=== PATIENT | male | born 1950 | race Native Hawaiian/Other Pacific Islander ===

== ENCOUNTER 2016-07-05 12:04 | Emergency (ER) | payer OTHER ==
[~2016-07-05] VITALS: Ht 160 cm; Wt 88.5 kg
[~2016-07-05 12:04] MED LIST: AMIO200T14 PO; AMLO2.5T PO; ASPIRIN LOW STR81 MG PO; CARV6.25 PO; COZAAR25 MG PO; FURO20TA67 PO; GABA300C2 PO; METF500T PO; METO50TA27 PO; PANT40TA PO; POT CHLORIDE10 ME1 OR; POT CHLORIDE10 ME1 PO; PRAVACHOL80 MG PO; SPIRIVA IN; WARFARIN2.5 MG PO
[2016-07-05 12:10] VITALS: BP 150/95; TEMP 98.4
== END 2016-07-05 13:45 | disposition home or self-care (01) ==
LOC: ED 12:04
DX: R42 Dizziness and giddiness (principal)
CPT/HCPCS: 99283

== ENCOUNTER 2016-08-06 13:35 | Outpatient (CLI) | payer OTHER ==
[2016-08-06 13:59] LABS: POTASSIUM 4.6 mmol/L (3.6-5.2); SODIUM 136 mmol/L (136-145)
== END 2016-08-06 19:33 | disposition home or self-care (01) ==
LOC: LABW 13:35
PROVIDERS: Internal Medicine Cardiovascular Disease
DX: I34.0 Nonrheumatic mitral (valve) insufficiency (principal); R60.9 Edema, unspecified; I42.8 Other cardiomyopathies; Z79.01 Long term (current) use of anticoagulants; I25.10 Atherosclerotic heart disease of native coronary artery without angina pectoris; R06.9 Unspecified abnormalities of breathing
CPT/HCPCS: 36415; 80048; 83880

== ENCOUNTER 2016-12-07 12:56 | Emergency (ER) | payer OTHER ==
[~2016-12-07] VITALS: Ht 160 cm; Wt 86.2 kg
[2016-12-07 13:28] VITALS: BP 166/71; TEMP 97.7
== END 2016-12-07 14:44 | disposition home or self-care (01) ==
LOC: ED 12:56
DX: M54.41 Lumbago with sciatica, right side (principal)
CPT/HCPCS: 99282

== ENCOUNTER 2016-12-20 12:59 | Emergency (ER) | payer OTHER ==
[~2016-12-20] VITALS: Ht 190.5 cm; Wt 86.2 kg
[2016-12-20 13:41] LABS: PLATELET COUNT 265 K/uL (142-355)
[2016-12-20 14:47] VITALS: BP 152/63; TEMP 97.9
== END 2016-12-20 14:45 | disposition home or self-care (01) ==
LOC: ED 12:59
DX: R06.09 Other forms of dyspnea (principal); J44.1 Chronic obstructive pulmonary disease with (acute) exacerbation; J20.9 Acute bronchitis, unspecified; J44.0 Chronic obstructive pulmonary disease with (acute) lower respiratory infection
CPT/HCPCS: 85027; 94664; 99283

== ENCOUNTER 2017-01-04 13:44 | Inpatient (IN) | payer OTHER ==
[2017-01-04] VITALS (28 sets, daily range): BP systolic 108–164; BP diastolic 70–130; TEMP 97.9–98.1; Ht 160 cm; Wt 83.2 kg
[~2017-01-04] VITALS: Ht 160 cm; Wt 83.2 kg
[2017-01-04 14:46] LABS: PLATELET COUNT 282 K/uL (142-355)
[2017-01-04 14:57] LABS: POTASSIUM 4.1 mmol/L (3.6-5.2); SODIUM 139 mmol/L (136-145)
[2017-01-04 15:19] LABS: PARTIAL THROMBOPLASTIN TIME 25.6 SECONDS (24.5-33.6)
[2017-01-05] VITALS (19 sets, daily range): BP systolic 112–176; BP diastolic 60–112; TEMP 97.6–98.4
[2017-01-05 06:38] LABS: PLATELET COUNT 262 K/uL (142-355)
[2017-01-05 09:52] LABS: POTASSIUM 5.1 mmol/L (3.6-5.2); SODIUM 135 mmol/L (136-145)
[2017-01-06 08:22] VITALS: BP 131/65; TEMP 98
[2017-01-06 15:04] LABS: PLATELET COUNT 288 K/uL (142-355)
== END 2017-01-06 14:20 | disposition home or self-care (01) | DRG 310 ==
LOC: ED 13:44 → ICU 16:15 → MED/SURG 01-05 12:09
PROVIDERS: Family Medicine; ADMIT Emergency Medicine
DX: I48.91 Unspecified atrial fibrillation (principal); I48.92 Unspecified atrial flutter; I10 Essential (primary) hypertension; E11.9 Type 2 diabetes mellitus without complications; J44.9 Chronic obstructive pulmonary disease, unspecified; F43.10 Post-traumatic stress disorder, unspecified
CPT/HCPCS: 36415; 80053; 80061; 80307; 80320; 81000; 82550; 82553; 82948; 82962; 83735; 83880; 84484; 85027; 85610; 85730; 93005; 94640; 94664; 94760; 96361; 96365; 96372; 96375; 99285; G0479; J1815; J1956; J2930; J3475; J3490

== ENCOUNTER 2017-08-06 11:47 | Emergency (ER) | payer OTHER ==
[~2017-08-06] VITALS: Ht 160 cm; Wt 87.5 kg
[2017-08-06 13:10] LABS: PLATELET COUNT 311 K/uL (142-355)
[2017-08-06 13:12] LABS: POTASSIUM 4.9 mmol/L (3.6-5.2)
[2017-08-06 14:30] VITALS: BP 122/78; TEMP 97.9
== END 2017-08-06 14:30 | disposition home or self-care (01) ==
LOC: ED 11:47
PROVIDERS: Family Medicine
DX: J20.9 Acute bronchitis, unspecified (principal); R06.02 Shortness of breath
CPT/HCPCS: 36415; 80048; 83880; 85027; 94664; 96372; 99283

== ENCOUNTER 2017-08-12 14:50 | Emergency (ER) | payer OTHER ==
[~2017-08-12] VITALS: Ht 154.9 cm; Wt 85.3 kg
[2017-08-12 15:00] VITALS: TEMP 97.5
[2017-08-12 17:03] VITALS: BP 156/71
== END 2017-08-12 17:03 | disposition home or self-care (01) ==
LOC: ED 14:50
DX: T78.49XA Other allergy, initial encounter (principal)
CPT/HCPCS: 96372; 99282; J2930

== ENCOUNTER 2017-09-02 12:37 | Emergency (ER) | payer OTHER ==
[~2017-09-02] VITALS: Ht 160 cm; Wt 90.3 kg
[2017-09-02 13:18] VITALS: BP 182/98; TEMP 97.9
== END 2017-09-02 13:18 | disposition home or self-care (01) ==
LOC: ED 12:37
DX: L72.3 Sebaceous cyst (principal)
CPT/HCPCS: 99282

== ENCOUNTER 2017-12-03 13:52 | Outpatient (CLI) | payer OTHER | END 2017-12-03 19:50 | disposition home or self-care (01) | LOC: MRI 13:52 | DX: G62.9 Polyneuropathy, unspecified (principal); M21.372 Foot drop, left foot ==

== ENCOUNTER 2018-12-28 08:33 | Outpatient (CLI) | payer OTHER | END 2018-12-28 20:08 | disposition home or self-care (01) | LOC: NM 08:33 | DX: I48.4 Atypical atrial flutter (principal); I42.8 Other cardiomyopathies | CPT/HCPCS: A9500; J2785 ==

== ENCOUNTER 2020-01-06 13:04 | Outpatient (CLI) | payer OTHER | END 2020-01-06 22:27 | disposition home or self-care (01) | LOC: CT 13:04 | DX: M21.372 Foot drop, left foot (principal) ==